=== PATIENT | male | born 1935 ===

== ENCOUNTER 2018-07-14 08:12 | Emergency (ER) | payer OTHER ==
[~2018-07-14] VITALS: Ht 160 cm; Wt 79.8 kg
[~2018-07-14 08:12] MED LIST: ANTIHIPERTENSIVO; BRONCOTRON LIQ118 ML PO; DESPEC-DM TABL1 EACH PO; DICLOFENAC SODI50 MG PO; FOLIC + B12 TAB1 TAB; INTESTINEX680 MG PO; LISINOPRIL10 MG PO; OMEPRAZOLE10 MG; ZANTAC 7575 MG
== END 2018-07-14 11:11 | disposition home or self-care (01) ==
LOC: ER 08:12
DX: M25.474 Effusion, right foot (principal)

== ENCOUNTER 2018-07-30 09:44 | Outpatient (CLI) | payer OTHER | END 2018-07-30 10:00 | disposition home or self-care (01) | LOC: NUCLEAR 09:44 | DX: N19 Unspecified kidney failure (principal); N13.8 Other obstructive and reflux uropathy | CPT/HCPCS: 78708; A9539; J1940 ==

== ENCOUNTER → 2019-03-15 | Emergency (ER) | payer OTHER ==
[~2019-03-15] VITALS: Ht 162.6 cm; Wt 76.2 kg
== END | disposition home or self-care (01) ==
LOC: ER 09:32
DX: R42 Dizziness and giddiness (principal)